=== PATIENT | male | born 1950 | race Caucasian/White ===

== ENCOUNTER 2017-09-07 15:39 | Inpatient (IN) | payer OTHER ==
[2017-09-07] VITALS (8 sets, daily range): BP systolic 101–105; BP diastolic 68–74; PULSE 84–101; TEMP 36.1; O2SAT 92–96; Ht 177.8 cm; Wt 94.7 kg
[~2017-09-07] VITALS: Ht 177.8 cm; Wt 94.7 kg
[~2017-09-07 15:39] MED LIST: AZIT-57 PO; BRVIN INH; HPRIS5M SQ; IPRA-2 INH; LANS30TA3 PO; LCTX PO; MCM600 PO; NTRSLP4 SL; NYSS5 PO; PLMINS25 INH; PRD5 PO; ULT50X PO
[2017-09-07] MEDS ORDERED: AZITHROMYCIN IV 500 MG in DEXTROSE 5% 250ML 250 ML IV ONE (16:00)
[2017-09-07] MEDS ORDERED: ALBUT/IPRATROP 3MG/0.5MG NEB 3 ML VIAL INH ONE ×2 (16:00→18:15)
[2017-09-07] MEDS ORDERED: METHYLPREDNISOLONE 125 MG VIAL IV STA (16:00)
[2017-09-07] MEDS ORDERED: MAGNESIUM SULFATE 1GM / D5W 1 GM BAG IV STA (16:00)
--- NOTE | 2017-09-07 16:10 | EMERGENCY ROOM VISIT NOTE ---
History Report prepared by Efrain: Arturo Perera Under the Supervision of: Dr. Brodie Boudreaux M.D. First contact with patient: 15:41 Stated Complaint: SYNCOPE History of Present Illness The patient is a 67 year old male who presents to the Emergency Room with complaints of worsening shortness of breath beginning a few days ago. The patient's extended family states he lives alone. They report the patient was a little off yesterday, and he was checking his O2 Sat a lot. They state the patient was able to watch the football game and stay awake. The family notes he has been a little off for the past few days and think it has been building. They state the patient was short of breath while talking to him on the phone earlier, so they went to his house. The family reports the patient was not able to be aroused. The patient states he was using his inhalers a lot yesterday. EMS states the patient lives in poor conditions, and they question if the patient needs office of aging, and there was question if the patient is non compliant with his medications. HPI limited secondary to the patient's condition. Source of History: patient, family History Limited By: other (condition) Review of Systems ROS limited secondary to the patient's condition. Past Medical & Surgical Medical Problems: (1) Acute hypercapnic respiratory failure (2) Acute respiratory failure with hypoxia and hypercapnia (3) Acute tubular necrosis (4) Hyperglycemia (5) HYPERTENSION NOS (6) Mass of left lung (7) Mass of right lung (8) Nonsustained ventricular tachycardia (9) Prolonged Q-T interval on ECG (10) Tobacco abuse (11) Tobacco user Family History Hypertension Social History Smoking Status: Current Every Day Smoker Alcohol Use: occasionally Drug Use: none Marital Status: single Housing Status: lives alone Occupation Status: retired Current/Historical Medications Scheduled Budesonide/Formoterol Fumarate (Symbicort 160/4.5 Inhaler ), 2 PUFFS INH BID Diltiazem Hcl Ext Rel (Tiazac), 180 MG PO QAM Furosemide (Lasix), 40 MG PO BID Scheduled PRN Ipratropium-Albuterol (Combivent Respimat), 1 PUFFS INH QID PRN for SOB/Wheezing Nitroglycerin (Nitrostat), 0.4 MG SL UD PRN for Chest Pain Allergies Coded Allergies: No Known Allergies (Unverified , NONE, 10/29/17) Physical Exam Vital Signs Date Time Temp Pulse Resp B/P (MAP) Pulse Ox O2 Delivery O2 Flow Rate FiO2 09/07/17 18:28 95 95 90 09/07/17 18:19 95 24 92 BiPAP/CPAP 100 09/07/17 17:16 101 14 104/74 100 BiPAP 100 09/07/17 16:26 101 20 94 BiPAP/CPAP 100 09/07/17 16:23 101 94 100 09/07/17 15:50 97 09/07/17 15:40 84 Room Air 09/07/17 15:40 84 Room Air 09/07/17 15:40 36.4 106 26 137/87 84 Room Air 09/07/17 15:40 98 Non-Rebreather Physical Exam GENERAL: alert to painful stimuli, drowsy, in mild distress HENT: Normocephalic, atraumatic. Oropharynx with Dry and cracked mucus membranes. EYES: Normal conjunctiva. Sclera non-icteric. NECK: Supple. No nuchal rigidity. FROM. No JVD. RESPIRATORY: Diminished breath sounds throughout with scattered wheezing. Poor air entry. CARDIAC: ST. Extremities warm and well perfused. Pulses equal. ABDOMEN: obese but soft, distended. No tenderness to palpation. No rebound or guarding. No masses. RECTAL: Deferred. MUSCULOSKELETAL: Chest examination reveals no tenderness. The back is symmetrical on inspection without obvious abnormality. There is no CVA tenderness to palpation. No joint edema. LOWER EXTREMITIES: Calves are equal size bilaterally and non-tender. 2+ bilateral edema. Chronic venous stasis discoloration. No erythema or warmth. No tenderness. No warmth. No crepitus. NEURO: Normal sensorium. No sensory or motor deficits noted. Intermittent myoclonus. GCS 13 SKIN: No rash or jaundice noted. Medical Decision & Procedures ER Provider Diagnostic Interpretation: X-ray: Per my interpretation, radiologist review. CHEST ONE VIEW PORTABLE CLINICAL HISTORY: CHEST PAIN dyspnea COMPARISON STUDY: 618 1016 FINDINGS: Increased diameter of a density right mid-upper lung region. This has a greatest maximum dimension currently of 3.6 cm increased from the prior study of 2.0 cm. Slight interstitial prominence of both lung bases noted although this is less prominent as compared to the prior study. IMPRESSION: Increasing size of a spiculated nodule right midlung region. 2. Neoplasm is the diagnosis of exclusion as was noted previously. 3. Slight basilar interstitial prominence. The above report was generated using voice recognition software. It may contain grammatical, syntax or spelling errors. Electronically signed by: Luís Figueroa M.D. 09/07/2017 5:11 PM Dictated Date/Time: 09/07/2017 5:10 PM Laboratory Results 09/07/17 16:20 Red Blood Count 5.42, Mean Corpuscular Volume 96.5, Mean Corpuscular Hemoglobin 29.2, Mean Corpuscular Hemoglobin Concent 30.2, Mean Platelet Volume 10.6, Neutrophils (%) (Auto) 88.7, Lymphocytes (%) (Auto) 4.8, Monocytes (%) (Auto) 5.8, Eosinophils (%) (Auto) 0.0, Basophils (%) (Auto) 0.1, Neutrophils # (Auto) 12.51, Lymphocytes # (Auto) 0.68, Monocytes # (Auto) 0.82, Eosinophils # (Auto) 0.00, Basophils # (Auto) 0.02 09/07/17 16:20 Test 09/07/17 16:17 09/07/17 16:20 09/07/17 16:28 09/07/17 18:17 Venous Blood pH 7.26 (7.36-7.41) Venous Blood Partial Pressure CO2 102 mmHg (38.0-50.0) Venous Blood Partial Pressure O2 37 mmHg Venous Blood HCO3 45 mmol/L Venous Blood Oxygen Saturation 69.5 % Venous Blood Base Excess 12.7 mEq/L White Blood Count 14.12 K/uL (4.8-10.8) Red Blood Count 5.42 M/uL (4.7-6.1) Hemoglobin 15.8 g/dL (14.0-18.0) Hematocrit 52.3 % (42-52) Mean Corpuscular Volume 96.5 fL (80-100) Mean Corpuscular Hemoglobin 29.2 pg (25-34) Mean Corpuscular Hemoglobin Concent 30.2 g/dl (32-36) Platelet Count 267 K/uL (130-400) Mean Platelet Volume 10.6 fL (7.4-10.4) Neutrophils (%) (Auto) 88.7 % Lymphocytes (%) (Auto) 4.8 % Monocytes (%) (Auto) 5.8 % Eosinophils (%) (Auto) 0.0 % Basophils (%) (Auto) 0.1 % Neutrophils # (Auto) 12.51 K/uL (1.4-6.5) Lymphocytes # (Auto) 0.68 K/uL (1.2-3.4) Monocytes # (Auto) 0.82 K/uL (0.11-0.59) Eosinophils # (Auto) 0.00 K/uL (0-0.5) Basophils # (Auto) 0.02 K/uL (0-0.2) RDW Standard Deviation 54.7 fL (36.4-46.3) RDW Coefficient of Variation 15.5 % (11.5-14.5) Immature Granulocyte % (Auto) 0.6 % Immature Granulocyte # (Auto) 0.09 K/uL (0.00-0.02) Prothrombin Time 11.0 SECONDS (9.0-12.0) Prothromb Time International Ratio 1.0 (0.9-1.1) Anion Gap 3.0 mmol/L (3-11) Est Creatinine Clear Calc Drug Dose 79.1 ml/min Estimated GFR () 85.1 Estimated GFR (Non- 73.4 BUN/Creatinine Ratio 18.4 (10-20) Calcium Level 8.7 mg/dl (8.5-10.1) Magnesium Level 2.5 mg/dl (1.8-2.4) Total Bilirubin 0.4 mg/dl (0.2-1) Direct Bilirubin 0.2 mg/dl (0-0.2) Aspartate Amino Transf (AST/SGOT) 36 U/L (15-37) Alanine Aminotransferase (ALT/SGPT) 32 U/L (12-78) Alkaline Phosphatase 121 U/L (45-117) Pro-B-Type Natriuretic Peptide 118 pg/ml (0-900) Total Protein 7.6 gm/dl (6.4-8.2) Albumin 3.0 gm/dl (3.4-5.0) Lipase 64 U/L (73-393) Lactic Acid Level 1.0 mmol/L (0.4-2.0) Bedside Hemoglobin 17.3 g/dl (14.0-18.0) Bedside Hematocrit 51 % (42-52) Bedside Blood Gas pH (LAB) 7.22 (7.35-7.45) Bedside Blood Gas pCO2 (LAB) > 115 mmHg (35-46) Bedside Blood Gas pO2 (LAB) 107 mmHg (80-95) Bedside Blood Gas HCO3 (LAB) 48 meq/L (19-24) Bedside Blood Gas Total CO2 < 5 mEq/l (24-31) Bedside Blood Gas Base Excess (LAB) 20.0 meq/L (-9-1.8) Bedside Blood Gas O2 Saturation 96.0 % (90-95) Bedside Sodium 137 mEq/L (135-144) Bedside Potassium 3.9 mEq/L (3.3-5.0) Laboratory results reviewed by me Medications Administered Medications (Trade) Dose Ordered Sig/Andrés Route Start Time Stop Time Status Last Admin Dose Admin Azithromycin 500 mg/Dextrose 255 ml @ 125 mls/hr ONE ONCE IV 09/07/17 16:00 09/07/17 18:02 DC 09/07/17 16:40 125 MLS/HR Methylprednisolone Sodium Succinate (Solu-Medrol IV) 125 mg NOW STAT IV 09/07/17 16:00 09/07/17 16:05 DC 09/07/17 16:40 125 MG Magnesium Sulfate (Magnesium Sulfate) 2 gm NOW STAT IV 09/07/17 16:00 09/07/17 16:05 DC 09/07/17 16:43 2 GM Albuterol/ Ipratropium (Duoneb) 12 ml ONE ONCE INH 09/07/17 16:00 09/07/17 16:05 DC 09/07/17 16:22 12 ML Piperacillin Sod/ Tazobactam Sod (Zosyn Iv) 4.5 gm NOW STAT IV 09/07/17 17:28 09/07/17 17:31 DC 09/07/17 18:37 4.5 GM Vancomycin HCl 2250 mg/Sodium Chloride 545 ml @ 200 mls/hr ONE STAT IV 09/07/17 17:28 09/07/17 20:11 DC 09/07/17 19:51 200 MLS/HR Sodium Chloride 1,000 ml @ 999 mls/hr Q1H1M STAT IV 09/07/17 17:30 09/07/17 18:30 DC 09/07/17 17:47 999 MLS/HR Albuterol/ Ipratropium (Duoneb) 12 ml ONE ONCE INH 09/07/17 18:15 09/07/17 18:16 DC 09/07/17 18:10 12 ML ECG Indication: SOB/dyspnea Rate (beats per minute): 97 Rhythm: sinus rhythm Findings: PVC (occasional), no acute ischemic change, other (normal axis) ED Course 1552: The patient was evaluated in room C06. A complete history and physical exam was performed. 1600: Ordered Duoneb 12ml INH, Magnesium Sulfate 2gm IV, Solu-Medrol IV 125mg IV , Azithromycin 500 mg/Dextrose 255ml @ 125mls/hr IV 1634: I reevaluated the patient and updated him and his family of his current exam findings. 1728: Ordered Vancomycin HCl 2250mg/Sodium Chloride 545ml @ 200mls/hr IV, Piperacillin Sod/Tazobactam Sod 4.5gm IV 1730: Ordered Sodium Chloride 1000 ml @ 999 mls/hr IV 1743: I discussed the patient's case with Dr. Crump, [facility] Hospitalist. The patient will be evaluated for further management and care. 175: Upon reexamination, the patient was feeling better and more arousable. I discussed the test results and treatment plan with him and his family. The patient will be evaluated for further management. 1815: Ordered Duoneb 12ml INH Medical Decision I reviewed the patient's past medical history, medications, and the nursing notes as described above. Differential diagnoses: COPD exacerbation/hypercapnic respiratory failure, pneumonia, bronchitis, ACS, CHF, PE, sepsis. The patient is a 59-year-old gentleman with a past medical history of COPD on 2 L home O2 with history of respiratory failure requiring intubation presents to the emergency department with drowsiness, shortness of breath after being found by a family member this afternoon when he was not making sense over the phone per history of present illness. Per family the patient reports that they were watching football last night and he seemed a little fatigued but otherwise at his baseline. On arrival the patient is arousable to painful stimulus and mildly confused with intermittent mild myoclonus. Lungs diminished throughout with scattered wheezes. Suspicious for severe hypercarbia. Will place on BiPAP with continuous nebs steroids, Azithromycin, magnesium. Sepsis workup. Labs notable for hypercapnia with CO2 100s on VBG. pH 7.25. WBC 14. Chest x- ray with basilar opacities and otherwise interval enlargement of a known spiculated mass. She was given broad-spectrum antibiotics. Likely will require ICU admission given h/o of worsening symptoms requiring intubation. ABG done 2 hours after Bipap with CO2 to 110s and pH 7.21. While gas slightly worse patent clinically improved as arousable to light touch and with some increase air movement. Repeat continuous duoneb ordered. Case was discussed with Dr. Crump [facility] hospitalist, who will admit for further management. Head Trauma GCS Score: 13 Medication Reconcilliation Current Medication List: was personally reviewed by me Blood Pressure Screening Patient's blood pressure: Normal blood pressure Blood pressure disposition: Did not require urgent referral Consults Time Called: 1724 Consulting Physician: Dr. Crump [facility] Hospitalist Returned Call: 1743 I discussed the patient's case with Dr. Crump [facility] Hospitalist. The patient will be evaluated for further management and care. Impression Primary Impression: Acute hypercapnic respiratory failure Critical Care I have personally spent greater than 80 minutes of critical care time in the direct management of this patient. This includes bedside care, interpretation of diagnostic studies, and testing, discussion with consultants, patient, and family members, and other required patient management activities. This 80 minutes is in excess of all separately billable procedures. Scribe Attestation The scribe's documentation has been prepared under my direction and personally reviewed by me in its entirety. I confirm that the note above accurately reflects all work, treatment, procedures, and medical decision making performed by me. Departure Information Dispostion Being Evaluated By Hospitalist Referrals No Doctor, Assigned (PCP)
[2017-09-07] MEDS ORDERED: IPRA1AER2 INH (16:20)
[2017-09-07] MEDS ORDERED: DILT-113 PO (16:20)
[2017-09-07] MEDS ORDERED: SYMIN160 INH (16:20)
[2017-09-07] MEDS ORDERED: FRS/40 PO (16:20)
[2017-09-07 16:26] LABS: VEN BLD GAS O2 SATURATION 69.5 %; VEN BLOOD GAS BASE EXCESS 12.7 mEq/L
[2017-09-07 16:40] LABS: BASO % 0.1 %; BASO ABS # 0.02 K/uL (0-0.2); COMPLETE YES; HEMATOCRIT 52.3 % (42-52); IG% 0.6 %; LYMPH % 4.8 %; LYMPH ABS # 0.68 K/uL (1.2-3.4); MEAN CELL VOLUME 96.5 fL (80-100); MEAN CORPUSCULAR HEMOGLOBIN 29.2 pg (25-34); MEAN CORPUSCULAR HGB CONC 30.2 g/dl (32-36); MEAN PLATELET VOLUME 10.6 fL (7.4-10.4); MONO % 5.8 %; NEUT % 88.7 %; PLATELET COUNT 267 K/uL (130-400); RED BLOOD COUNT 5.42 M/uL (4.7-6.1); WHITE BLOOD COUNT 14.12 K/uL (4.8-10.8)
[2017-09-07 17:05] LABS: BUN/CREATININE RATIO 18.4 (10-20); CALCIUM 8.7 mg/dl (8.5-10.1); CREATININE 1.04 mg/dl (0.60-1.40); POTASSIUM 3.8 mmol/L (3.5-5.1)
--- NOTE | 2017-09-07 17:13 | DIAGNOSTIC IMAGING REPORT ---
CHEST ONE VIEW PORTABLE CLINICAL HISTORY: CHEST PAIN dyspnea COMPARISON STUDY: 618 1016 FINDINGS: Increased diameter of a density right mid-upper lung region. This has a greatest maximum dimension currently of 3.6 cm increased from the prior study of 2.0 cm. Slight interstitial prominence of both lung bases noted although this is less prominent as compared to the prior study. IMPRESSION: Increasing size of a spiculated nodule right midlung region. 2. Neoplasm is the diagnosis of exclusion as was noted previously. 3. Slight basilar interstitial prominence. The above report was generated using voice recognition software. It may contain grammatical, syntax or spelling errors. Electronically signed by: Luís Figueroa M.D. 09/07/2017 5:11 PM Dictated Date/Time: 09/07/2017 5:10 PM
[2017-09-07] MEDS ORDERED: PIPERACILLIN/TAZOBACTAM 4.5 GM/100ML D5W IV STA (17:28)
[2017-09-07] MEDS ORDERED: VANCOMYCIN INJ 2,250 MG in SODIUM CHLORIDE 0.9% 500ML 500 ML IV STA (17:28)
[2017-09-07] MEDS ORDERED: SODIUM CHLORIDE 0.9% 1000ML 1,000 ML IV STA (17:30)
[2017-09-07 18:38] LABS: ISTAT ARTERIAL BLOOD GAS HCO3 48 meq/L (19-24); ISTAT ARTERIAL BLOOD GAS PCO2 > 115 mmHg (35-46); ISTAT ARTERIAL BLOOD GAS PO2 107 mmHg (80-95); ISTAT ARTERIAL BLOOD GAS pH 7.22 (7.35-7.45); ISTAT CARBON DIOXIDE < 5 mEq/l (24-31); ISTAT HEMATOCRIT 51 % (42-52); ISTAT HEMOGLOBIN 17.3 g/dl (14.0-18.0); ISTAT SODIUM 137 mEq/L (135-144)
[2017-09-07] MEDS ORDERED: OPTIRAY 320 IV PRN (19:15)
[2017-09-07] MEDS ORDERED: ACETAMINOPHEN 325 MG TAB PO PRN (19:15)
[2017-09-07] MEDS ORDERED: FUROSEMIDE 40 MG TAB PO SCH (20:00)
--- NOTE | 2017-09-07 20:16 | DIAGNOSTIC IMAGING REPORT ---
(CHEST FOR PE) ANGIO WITH CT DOSE: 715.06 mGy.cm HISTORY: Chest pain dyspnea TECHNIQUE: Multiaxial CT images of the chest were performed following the intravenous administration of contrast to evaluate the pulmonary arteries. Maximal intensity projection images were also obtained. A dose lowering technique was utilized adhering to the principles of ALARA. COMPARISON STUDY: 04/19/2016 FINDINGS: Thoracic aorta shows moderate atherosclerotic change. It is negative for aneurysm. Pulmonary arterial vasculature enhances appropriately. There are no major filling defects. Heart is mildly enlarged. The right upper lobe mass again shows a spiculated margin and has increased in volume. Currently measures 3.3 x 3.7 cm and is pleural-based. Neoplasm is the diagnosis of exclusion. Remainder the right lung shows mild bibasilar interstitial change. There is a small consolidative infiltrate posterior aspect of the right as well as left posterior gastric angle. Bibasilar atelectatic changes present. There is a new developing nodule lateral aspect left lung base measuring 11 mm at maximum. Limited evaluation of the upper abdomen shows mild hyperplastic changes the adrenal glands. IMPRESSION: 1. Study is negative for pulmonary embolus. 2. Increase in size of a right upper lobe spiculated mass currently measuring 3.3 x 3.7 cm. 3. A neoplastic processes diagnosis of exclusion. 4. Additional 11 mm spiculated nodular density left base. 5. Mild bibasilar parenchymal infiltrative change with mild generalized emphysematous change bilaterally. The above report was generated using voice recognition software. It may contain grammatical, syntax or spelling errors. Electronically signed by: Luís Figueroa M.D. 09/07/2017 8:15 PM Dictated Date/Time: 09/07/2017 8:11 PM
[2017-09-07] MEDS ORDERED: VANCOMYCIN CONSULT ACTIVE PRN (20:30)
[2017-09-07] MEDS ORDERED: PIPERACILL/TAZOBAC CONSULT ACTIVE PRN (20:30)
--- NOTE | 2017-09-07 20:34 | Pharmacy Progress Note ---
Pharmacy Antibiotic Consult Date of Service: Sep 07, 2017. Pharmacy Dosing Scope Pharmacy is consulted to initiate vancomycin and Zosyn IV dosing therapy, order appropriate labs and adjust drug dose/frequency. Subjective The patient is a 67 year old male admitted on Sep 07, 2017 at 19:12. Objective Height (Feet): 5 Height (Inches): 10.00 Weight (Kilograms): 96.100 Lab Results (24hrs): Test 09/07/17 16:17 09/07/17 16:20 09/07/17 16:28 09/07/17 18:17 Venous Blood pH 7.26 (7.36-7.41) Venous Blood Partial Pressure CO2 102 mmHg (38.0-50.0) Venous Blood Partial Pressure O2 37 mmHg Venous Blood HCO3 45 mmol/L Venous Blood Oxygen Saturation 69.5 % Venous Blood Base Excess 12.7 mEq/L White Blood Count 14.12 K/uL (4.8-10.8) Red Blood Count 5.42 M/uL (4.7-6.1) Hemoglobin 15.8 g/dL (14.0-18.0) Hematocrit 52.3 % (42-52) Mean Corpuscular Volume 96.5 fL (80-100) Mean Corpuscular Hemoglobin 29.2 pg (25-34) Mean Corpuscular Hemoglobin Concent 30.2 g/dl (32-36) Platelet Count 267 K/uL (130-400) Mean Platelet Volume 10.6 fL (7.4-10.4) Neutrophils (%) (Auto) 88.7 % Lymphocytes (%) (Auto) 4.8 % Monocytes (%) (Auto) 5.8 % Eosinophils (%) (Auto) 0.0 % Basophils (%) (Auto) 0.1 % Neutrophils # (Auto) 12.51 K/uL (1.4-6.5) Lymphocytes # (Auto) 0.68 K/uL (1.2-3.4) Monocytes # (Auto) 0.82 K/uL (0.11-0.59) Eosinophils # (Auto) 0.00 K/uL (0-0.5) Basophils # (Auto) 0.02 K/uL (0-0.2) RDW Standard Deviation 54.7 fL (36.4-46.3) RDW Coefficient of Variation 15.5 % (11.5-14.5) Immature Granulocyte % (Auto) 0.6 % Immature Granulocyte # (Auto) 0.09 K/uL (0.00-0.02) Prothrombin Time 11.0 SECONDS (9.0-12.0) Prothromb Time International Ratio 1.0 (0.9-1.1) Sodium Level 136 mmol/L (136-145) Potassium Level 3.8 mmol/L (3.5-5.1) Chloride Level 94 mmol/L (98-107) Carbon Dioxide Level 39 mmol/L (21-32) Anion Gap 3.0 mmol/L (3-11) Blood Urea Nitrogen 19 mg/dl (7-18) Creatinine 1.04 mg/dl (0.60-1.40) Est Creatinine Clear Calc Drug Dose 79.1 ml/min Estimated GFR () 85.1 Estimated GFR (Non- 73.4 BUN/Creatinine Ratio 18.4 (10-20) Random Glucose 141 mg/dl (70-99) Calcium Level 8.7 mg/dl (8.5-10.1) Magnesium Level 2.5 mg/dl (1.8-2.4) Total Bilirubin 0.4 mg/dl (0.2-1) Direct Bilirubin 0.2 mg/dl (0-0.2) Aspartate Amino Transf (AST/SGOT) 36 U/L (15-37) Alanine Aminotransferase (ALT/SGPT) 32 U/L (12-78) Alkaline Phosphatase 121 U/L (45-117) Troponin I 0.030 ng/ml (0-0.045) Pro-B-Type Natriuretic Peptide 118 pg/ml (0-900) Total Protein 7.6 gm/dl (6.4-8.2) Albumin 3.0 gm/dl (3.4-5.0) Lipase 64 U/L (73-393) Lactic Acid Level 1.0 mmol/L (0.4-2.0) Bedside Hemoglobin 17.3 g/dl (14.0-18.0) Bedside Hematocrit 51 % (42-52) Bedside Blood Gas pH (LAB) 7.22 (7.35-7.45) Bedside Blood Gas pCO2 (LAB) > 115 mmHg (35-46) Bedside Blood Gas pO2 (LAB) 107 mmHg (80-95) Bedside Blood Gas HCO3 (LAB) 48 meq/L (19-24) Bedside Blood Gas Total CO2 < 5 mEq/l (24-31) Bedside Blood Gas Base Excess (LAB) 20.0 meq/L (-9-1.8) Bedside Blood Gas O2 Saturation 96.0 % (90-95) Bedside Sodium 137 mEq/L (135-144) Bedside Potassium 3.9 mEq/L (3.3-5.0) Test 09/07/17 20:00 Micro Results: 09/07 blood x2 pending Recent Pertinent Medications Item Value Date Time Vancomycin HCl 530 ml @ 200 mls/hr 09/08/17 0800 1500 mg/Sodium Q12H/IV Chloride Piperacillin Sod/ 115 ml @ 28.75 mls/hr 09/08/17 0000 Tazobactam Sod Q8@0000,0800,1600/IV 3.375 gm/Dextrose Piperacillin Sod/ 4.5 gm 09/07/17 1728 Tazobactam Sod NOW STAT/IV 09/07/17 1837 (Zosyn Iv) Vancomycin HCl 545 ml @ 200 mls/hr 09/07/17 1728 2250 mg/Sodium ONE STAT/IV 09/07/17 1951 Chloride Azithromycin 500 255 ml @ 125 mls/hr 09/07/17 1600 mg/Dextrose ONE ONCE/IV 09/07/17 1640 Assessment & Plan Loading dose: vancomycin 2250 mg IV X 1 dose then: vancomycin 1500 mg IV every 12 hours. Goal peak level estimate: between 25 - 40 mcg/mL. Goal trough level estimate: between 15 - 20 mcg/mL. Trough has been ordered for: 09/09 17 before 0800 dose. Loading dose Zosyn 4.5 Gm IV over 30 minutes, then 3.375 Gm (infused over 4 hr) every 8 hours, for CrCl greater than 20 ml/min. Pharmacy will continue to follow and will adjust dose/frequency as necessary. Thank you
[2017-09-07 20:53] LABS: ARTERIAL BLD GAS O2 SATURATION 95.6 % (90-95); ARTERIAL BLOOD GAS HCO3 41 mmol/L (19-24); ARTERIAL BLOOD GAS PO2 95 mm/Hg (80-95)
[2017-09-07] MEDS: ALBUT/IPRATROP 3MG/0.5MG NEB 3 ML VIAL INH SCH (20:53)
[2017-09-07 20:57] LABS: ALLEN TEST POS (POS); O2 ADMINISTRATION 15 L
[2017-09-07 20:58] LABS: ARTERIAL BLOOD GAS pH 7.19 (7.35-7.45)
[2017-09-07] MEDS ORDERED: BUDESONIDE/FORMOTEROL FUMARATE 160/4.5 60 PUFFS/INHALER INH SCH (21:00)
--- NOTE | 2017-09-07 21:28 | History and Physical ---
History & Physical Date & Time of Service: Sep 07, 2017 at 20:53 Chief Complaint: Acute Hypercapnic Respiratory Failure Primary Care Physician: Dr. Son[facility] History of Present Illness Source: patient, family, clinic records, hospital records This patient is a 67-year-old male with history of severe COPD with chronic respiratory failure on 2 L nasal cannula, history of ventilator dependent respiratory failure requiring tracheostomy in April 2016, current smoker, HTN, chronic diastolic CHF, history of paroxysmal atrial flutter, lung nodule, CKD stage III, who presents to the ER after being found unresponsive by a friend at home today. His sister at the bedside reports she spoke to him on the phone yesterday and he sounded perfectly normal. When a friend came to check on him this afternoon, she found him unresponsive. He was in severe acute hypercapnic respiratory failure with an initial VBG a pH 7.26, CO2 102. He was placed on BiPAP and an ABG performed 2 hours later still showed pH 7.22, PaCO2 >115, and PaO2 of 107, although the patient at this time was much more alert and talkative. His chest x-ray revealed evidence of emphysema and increase in size of a right sided lung nodule, but no pneumonia. He had a leukocytosis with a white blood cell count of 14, but no fever. The patient reports an increase in his thick patel-yellow sputum over the last week or so. The patient sees his PCP at the [facility] about once every 6 months, but has not seen his [facility] PCP in 16 months. He purposefully did not follow-up on his right lung nodule as he tells me he would rather not know what it is. Past Medical/Surgical History PMH: Severe COPD Chronic respiratory failure History of ventilator dependent respiratory failure requiring tracheostomy in April 2016 Current smoker HTN Chronic diastolic CHF History of paroxysmal atrial flutter requiring cardioversion Right-sided lung nodule-patient never followed up on this CKD stage III PTSD PSH: Tracheotomy Tonsillectomy Family History Hypertension Mother and maternal aunt both from sarcoidosis Father and mother with diabetes mellitus and COPD Sr. with history of DVT/PE Paternal grandmother of PE Brother who is previously healthy suddenly recently, suspected PE versus MT Social History Smoking Status: Current Every Day Smoker (38-[id number] history minimum) Alcohol Use: occasionally Drug Use: none Marital Status: single Housing status: lives alone Occupational Status: retired, other (is also a ) Immunizations History of Influenza Vaccine: No Influenza Vaccine Date: Aug 23, 2012 History of Tetanus Vaccine?: Yes Tetanus Immunization Date: Jan 16, 2012 History of Pneumococcal: Yes Pneumococcal Date: Aug 23, 2012 History of Hepatitis B Vaccine: No Allergies Coded Allergies: No Known Allergies (Unverified , NONE, 09/07/17) Home Medications Scheduled Budesonide/Formoterol Fumarate (Symbicort 160/4.5 Inhaler ), 2 PUFFS INH BID Diltiazem Hcl Ext Rel (Tiazac), 180 MG PO QAM Furosemide (Lasix), 40 MG PO BID Scheduled PRN Ipratropium-Albuterol (Combivent Respimat), 1 PUFFS INH QID PRN for SOB/Wheezing Nitroglycerin (Nitrostat), 0.4 MG SL UD PRN for Chest Pain Review of Systems Constitutional: No fever, No chills, No sweats Eyes: No problem reported ENT: No problem reported Respiratory: + cough, + sputum, + wheezing, + shortness of breath, No hemoptysis Cardiovascular: + edema (chronic but seems to be slightly worse more recently) , No chest pain Abdomen: No pain, No nausea, No vomiting, No diarrhea, No constipation Musculoskeletal: No problem reported Genitourinary - Male: No problem reported Neurologic: No problem reported Psychiatric: + anxiety Endocrine: No problem reported Hematologic / Lymphatic: No problem reported Integumentary: No problem reported Allergic / Immunologic: No problem reported Physical Exam Vital Signs Date Time Temp Pulse Resp B/P (MAP) Pulse Ox O2 Delivery O2 Flow Rate FiO2 09/07/17 19:49 85 18 95/74 95 09/07/17 18:28 95 95 90 09/07/17 18:19 95 24 92 BiPAP/CPAP 100 09/07/17 17:16 101 14 104/74 100 BiPAP 100 09/07/17 16:26 101 20 94 BiPAP/CPAP 100 09/07/17 16:23 101 94 100 09/07/17 15:50 97 09/07/17 15:40 84 Room Air 09/07/17 15:40 84 Room Air 09/07/17 15:40 36.4 106 26 137/87 84 Room Air 09/07/17 15:40 98 Non-Rebreather General Appearance: + mild distress (sitting up in bed with BiPAP in place), + obese Head: normocephalic, atraumatic Eyes: normal inspection, PERRL, EOMI, sclerae normal ENT: hearing grossly normal Neck: trachea midline, + pertinent finding (obese neck) Respiratory/Chest: no accessory muscle use, + respiratory distress (mild tachypnea), + decreased breath sounds (diminished throughout all lung campos, with some scattered rhonchi and expiratory wheezes) Cardiovascular: no murmur, + tachycardia (with regular rhythm with ectopy), + pertinent finding (3+ pitting edema from the feet to the knees bilaterally with chronic venous stasis changes) Abdomen/GI: normal bowel sounds, non tender, soft (and obese), no organomegaly Back: normal inspection Extremities/Musculoskelatal: no calf tenderness Neurologic/Psych: no motor/sensory deficits, alert, normal mood/affect, oriented x 3 Skin: warm/dry, + pertinent finding (legs bilaterally with hemosiderin deposits of chronic venous stasis changes) Diagnostics Laboratory Results Results Past 24 Hours Test 09/07/17 16:17 09/07/17 16:20 09/07/17 16:28 09/07/17 18:17 Range/Units Venous Blood pH 7.26 7.36-7.41 Venous Blood Partial Pressure CO2 102 38.0-50.0 mmHg Venous Blood Partial Pressure O2 37 mmHg Venous Blood HCO3 45 mmol/L Venous Blood Oxygen Saturation 69.5 % Venous Blood Base Excess 12.7 mEq/L White Blood Count 14.12 4.8-10.8 K/uL Red Blood Count 5.42 4.7-6.1 M/uL Hemoglobin 15.8 14.0-18.0 g/dL Hematocrit 52.3 42-52 % Mean Corpuscular Volume 96.5 80-100 fL Mean Corpuscular Hemoglobin 29.2 25-34 pg Mean Corpuscular Hemoglobin Concent 30.2 32-36 g/dl Platelet Count 267 130-400 K/uL Mean Platelet Volume 10.6 7.4-10.4 fL Neutrophils (%) (Auto) 88.7 % Lymphocytes (%) (Auto) 4.8 % Monocytes (%) (Auto) 5.8 % Eosinophils (%) (Auto) 0.0 % Basophils (%) (Auto) 0.1 % Neutrophils # (Auto) 12.51 1.4-6.5 K/uL Lymphocytes # (Auto) 0.68 1.2-3.4 K/uL Monocytes # (Auto) 0.82 0.11-0.59 K/uL Eosinophils # (Auto) 0.00 0-0.5 K/uL Basophils # (Auto) 0.02 0-0.2 K/uL RDW Standard Deviation 54.7 36.4-46.3 fL RDW Coefficient of Variation 15.5 11.5-14.5 % Immature Granulocyte % (Auto) 0.6 % Immature Granulocyte # (Auto) 0.09 0.00-0.02 K/uL Prothrombin Time 11.0 9.0-12.0 SECONDS Prothromb Time International Ratio 1.0 0.9-1.1 Sodium Level 136 136-145 mmol/L Potassium Level 3.8 3.5-5.1 mmol/L Chloride Level 94 98-107 mmol/L Carbon Dioxide Level 39 21-32 mmol/L Anion Gap 3.0 3-11 mmol/L Blood Urea Nitrogen 19 7-18 mg/dl Creatinine 1.04 0.60-1.40 mg/dl Est Creatinine Clear Calc Drug Dose 79.1 ml/min Estimated GFR () 85.1 Estimated GFR (Non- 73.4 BUN/Creatinine Ratio 18.4 10-20 Random Glucose 141 70-99 mg/dl Calcium Level 8.7 8.5-10.1 mg/dl Magnesium Level 2.5 1.8-2.4 mg/dl Total Bilirubin 0.4 0.2-1 mg/dl Direct Bilirubin 0.2 0-0.2 mg/dl Aspartate Amino Transf (AST/SGOT) 36 15-37 U/L Alanine Aminotransferase (ALT/SGPT) 32 12-78 U/L Alkaline Phosphatase 121 45-117 U/L Troponin I 0.030 0-0.045 ng/ml Pro-B-Type Natriuretic Peptide 118 0-900 pg/ml Total Protein 7.6 6.4-8.2 gm/dl Albumin 3.0 3.4-5.0 gm/dl Lipase 64 73-393 U/L Lactic Acid Level 1.0 0.4-2.0 mmol/L Bedside Hemoglobin 17.3 14.0-18.0 g/dl Bedside Hematocrit 51 42-52 % Bedside Blood Gas pH (LAB) 7.22 7.35-7.45 Bedside Blood Gas pCO2 (LAB) > 115 35-46 mmHg Bedside Blood Gas pO2 (LAB) 107 80-95 mmHg Bedside Blood Gas HCO3 (LAB) 48 19-24 meq/L Bedside Blood Gas Total CO2 < 5 24-31 mEq/l Bedside Blood Gas Base Excess (LAB) 20.0 -9-1.8 meq/L Bedside Blood Gas O2 Saturation 96.0 90-95 % Bedside Sodium 137 135-144 mEq/L Bedside Potassium 3.9 3.3-5.0 mEq/L Test 09/07/17 20:43 Range/Units Microbiology Results 09/07/17 Blood Culture, Received Pending 09/07/17 Blood Culture, Received Pending Diagnostic Radiology Chest x-ray and chest CT images personally reviewed by me and agree with following radiology reports: CHEST ONE VIEW PORTABLE CLINICAL HISTORY: CHEST PAIN dyspnea COMPARISON STUDY: [id number] FINDINGS: Increased diameter of a density right mid-upper lung region. This has a greatest maximum dimension currently of 3.6 cm increased from the prior study of 2.0 cm. Slight interstitial prominence of both lung bases noted although this is less prominent as compared to the prior study. IMPRESSION: Increasing size of a spiculated nodule right midlung region. 2. Neoplasm is the diagnosis of exclusion as was noted previously. 3. Slight basilar interstitial prominence. (CHEST FOR PE) ANGIO WITH CT DOSE: 715.06 mGy.cm HISTORY: Chest pain dyspnea TECHNIQUE: Multiaxial CT images of the chest were performed following the intravenous administration of contrast to evaluate the pulmonary arteries. Maximal intensity projection images were also obtained. A dose lowering technique was utilized adhering to the principles of ALARA. COMPARISON STUDY: 04/19/2016 FINDINGS: Thoracic aorta shows moderate atherosclerotic change. It is negative for aneurysm. Pulmonary arterial vasculature enhances appropriately. There are no major filling defects. Heart is mildly enlarged. The right upper lobe mass again shows a spiculated margin and has increased in volume. Currently measures 3.3 x 3.7 cm and is pleural-based. Neoplasm is the diagnosis of exclusion. Remainder the right lung shows mild bibasilar interstitial change. There is a small consolidative infiltrate posterior aspect of the right as well as left posterior gastric angle. Bibasilar atelectatic changes present. There is a new developing nodule lateral aspect left lung base measuring 11 mm at maximum. Limited evaluation of the upper abdomen shows mild hyperplastic changes the adrenal glands. IMPRESSION: 1. Study is negative for pulmonary embolus. 2. Increase in size of a right upper lobe spiculated mass currently measuring 3.3 x 3.7 cm. 3. A neoplastic processes diagnosis of exclusion. 4. Additional 11 mm spiculated nodular density left base. 5. Mild bibasilar parenchymal infiltrative change with mild generalized emphysematous change bilaterally. EKG EKG with normal sinus rhythm with PVCs, prolonged QT of 505, no ischemic changes Impression Assessment and Plan This patient is a 67-year-old male with history of severe COPD with chronic respiratory failure on 2 L nasal cannula, history of ventilator dependent respiratory failure requiring tracheostomy in April 2016, current smoker, HTN, chronic diastolic CHF, history of paroxysmal atrial flutter, lung nodule, CKD stage III, who presents to the ER after being found unresponsive by a friend at home today. His sister at the bedside reports she spoke to him on the phone yesterday and he sounded perfectly normal. When a friend came to check on him this afternoon, she found him unresponsive. He was in severe acute hypercapnic respiratory failure with an initial VBG a pH 7.26, CO2 102. He was placed on BiPAP and an ABG performed 2 hours later still showed pH 7.22, PaCO2 >115, and PaO2 of 107, although the patient at the time of admission was much more alert and talkative. His chest x-ray revealed evidence of emphysema and increase in size of a right sided lung nodule, but no pneumonia. He had a leukocytosis with a white blood cell count of 14, but no fever. The patient reports an increase in his thick patel-yellow sputum over the last week or so. Acute on chronic hypercapnic and hypoxemic respiratory failure/bilateral pneumonia/acute exacerbation COPD/pulmonary nodules/current smoker-patient with evidence of chronic CO2 retention with a bicarbonate of 39. ABG with PaCO2 greater than 115. Pulse ox was 84% on admission. CT angiogram of the chest negative for PE, but shows bilateral lower lobe infiltrate an enlarging 3.3 x 3.7 cm right upper lobe pleural-based nodule as well as a new 11 mm left lower lobe nodule. Nodules could be malignancy versus sarcoidosis given strong family history, but also a current smoker. Has a history of ventilator dependent respiratory failure requiring tracheotomy in April 2017 and prolonged ICU and LTAC stay -Admit to telemetry unit for continuous cardiac monitoring -Continue BiPAP, follow ABG again in 2 hours -IV steroids and taper down -Azithromycin was given in the ER 1, but with prolonged QT, would avoid this in the future -Continue Zosyn and vancomycin as started in the ER for pneumonia and severe respiratory failure-could narrow down once his status improves -Consider intubation and transfer to the ICU if respiratory status worsens- patient reports he would be okay with elective intubation -Strongly encouraged smoking cessation -Consider pulmonary versus thoracic surgery consultation for biopsy of lung nodules-patient currently stating he doesn't think he wants to know if it is cancer or not Hypertension/history of paroxysmal atrial flutter/chronic diastolic CHF/ prolonged QTC-with chronic peripheral edema but I don't believe he is in acute CHF. In a normal sinus rhythm on admission. Blood pressure actually low normal -Continue Lasix 40 mg by mouth twice a day -Strict I's and O's, daily weights -Continue diltiazem and hold for low blood pressure -Trend troponin -Follow QT on ECG Chronic kidney disease stage III-creatinine acceptable currently at 1.0, electrolytes within normal limits -Follow PRP -Renally dose all medications -Avoid nephrotoxins Prophylaxis-heparin subcutaneous Disposition-telemetry unit DO NOT RESUSCITATE, but patient would like elective intubation if respiratory status is worsening Level of Care Telemetry Resuscitation Status DO NOT RESUSCITATE VTE Prophylaxis VTE Risk Assessment Done? Y/N: Yes Risk Level: Moderate Given or contraindicated: Unfractionated heparin SQ Additional Copies To Nicolas Son M.D.
[2017-09-07] MEDS ORDERED: HEPARIN SOD 5000 UNIT/0.5 ML CARP SQ SCH (22:00)
[2017-09-07] MEDS: METHYLPREDNISOLONE IV 60 MG in SYRINGE 0 ML IV SCH (22:37)
[2017-09-07] MEDS ORDERED: RAPID SEQUENCE INDUCTION BAG ONE (22:42)
[2017-09-07] MEDS ORDERED: MoRPHine SULFATE 2 MG/ML CARP IV PRN (22:45)
[2017-09-07] MEDS ORDERED: LORAZEPAM 2 MG/ML 1 ML VIAL IV PRN (22:45)
--- NOTE | 2017-09-07 22:55 | Progress Note ---
Progress Note Date of Service Sep 07, 2017. Progress Note Pt had been deteriorating due to hypoxia and hypercarbia - not responding to BiPAP with high-flow 02 I discussed the case with family and ICU PA reg possibility of intubation Family are aware that the pt may not come off of vent - he did however express wish to be intubated if needed, although he also added that this should be done to aid his recovery. It is not clear the he will benefit from intubation and again we have discussed this with family After careful deliberation, they would like to proceed with intubation and ICU transfer [employer] aware and will intubate and set vent to optimize management The pt is not responsive at time of transfer and could not participate i the conversation He remains a DNR
[2017-09-07] MEDS ORDERED: MoRPHine SULF/NSS 250MG/250ML 250 ML IV PRN (23:37)
[2017-09-07] MEDS ORDERED: MoRPHine SULFATE 2 MG/ML CARP IV STA (23:37)
[2017-09-08] MEDS ORDERED: PIPERACILL/TAZOBAC IV 3.375 GM in DEXTROSE 5% 100ML 100 ML IV SCH ×2
[2017-09-08 00:01] VITALS: BP 112/80; PULSE 78; O2SAT 96
--- NOTE | 2017-09-08 00:52 | Critical Care Consultation ---
Critical Care Consultation Date of Consultation: Sep 07, 2017. Attending Physician: Karla Crump MD Reason for Consultation: Hypercarbic respiratory failure History of Present Illness Patient is a 67-year-old male with end-stage COPD who continues to smoke, has a family history of sarcoidosis and has a known lung mass. Most recently in April 2016 he had a COPD exacerbation required intubation and mechanical ventilation ultimately required tracheostomy for long-term ventilator weaning. In review of the outpatient record as well as the inpatient record the patient was recommended to follow up with both pulmonary and thoracic surgery for possible navigational bronchoscopy to further elucidate the cause of the lung mass. He has not been seen in [facility] since his discharge in April 2016. Patient presented to [facility] [address] emergency department today with a chief complaint of shortness of breath and been progressive over the last couple of days. The family routinely checks on them and reported that he seemed a little off mentally yesterday. When they went to the patient's residence today he was not able to be aroused and called EMS. Patient's sister's report that he lives alone, continues to smoke. Per ED records EMS was concerned the patient's living conditions and questioned if the patient needs referral to the office of aging, there is note that the patient has a history of noncompliance In the emergency department the patient was started on IV antibiotics, bronchodilators, noninvasive ventilation. They discussed CODE STATUS and the patient did not want to be resuscitated in event of cardiac arrest, patient would be willing to undergo a trial of intubation if it was felt that he would improve his condition. It was noted that the patient was clinically more alert however the blood gas had minimal change. The patient's CO2 continued to climb and the patient became more encephalopathic. Currently he is unresponsive to deep painful stimuli. Past Medical/Surgical History Acute hypercapnic respiratory failure History of acute tubular necrosis History of urinary tract infection Bilateral lung masses Severe end-stage COPD oxygen dependent Family History Hypertension Social History Smoking Status: Current Every Day Smoker ([id number] history minimum) Alcohol Use: occasionally Drug Use: none Marital Status: single Housing Status: lives alone Occupation Status: retired, other (is also a ) Allergies Coded Allergies: No Known Allergies (Unverified , NONE, 09/07/17) Home Medications Scheduled Budesonide/Formoterol Fumarate (Symbicort 160/4.5 Inhaler ), 2 PUFFS INH BID Diltiazem Hcl Ext Rel (Tiazac), 180 MG PO QAM Furosemide (Lasix), 40 MG PO BID Scheduled PRN Ipratropium-Albuterol (Combivent Respimat), 1 PUFFS INH QID PRN for SOB/Wheezing Nitroglycerin (Nitrostat), 0.4 MG SL UD PRN for Chest Pain Current Inpatient Medications Current Inpatient Medications Medications (Trade) Dose Ordered Sig/Andrés Route Start Time Stop Time Status Last Admin Dose Admin Ioversol (Optiray 320) 100 ml UD PRN IV 09/07/17 19:15 09/11/17 19:14 Heparin Sodium (Porcine) (Heparin Sq 5000 Unit/0.5ml) 5,000 unit Q8 SQ 09/07/17 22:00 10/07/17 21:59 09/07/17 22:37 5,000 UNIT Acetaminophen (Tylenol Tab) 650 mg Q4H PRN PO 09/07/17 19:15 10/07/17 19:14 Piperacillin Sod/ Tazobactam Sod 3.375 gm/Dextrose 115 ml @ 28.75 mls/ hr Q8@0000,0800,1600 IV 09/08/17 00:00 09/15/17 00:00 Vancomycin HCl 1500 mg/Sodium Chloride 530 ml @ 200 mls/hr Q12H IV 09/08/17 08:00 09/14/17 19:59 Methylprednisolone Sodium Succinate 60 mg/Syringe 0.96 ml @ 1.5 mls/min Q6H IV 09/07/17 22:00 10/07/17 21:59 09/07/17 22:37 1.5 MLS/MIN Budesonide/ Formoterol Fumarate (Symbicort 160/ 4.5 Inh) 2 puffs BID INH 09/07/17 21:00 10/07/17 20:59 Diltiazem HCl (TIAzac CAP) 180 mg QAM PO 09/08/17 09:00 10/08/17 08:59 Furosemide (Lasix Tab) 40 mg BID17 PO 09/07/17 20:00 10/07/17 19:59 Albuterol/ Ipratropium (Duoneb) 3 ml QIDR INH 09/07/17 20:00 10/07/17 19:59 Vancomycin HCl (Consult) 1 ea UD PRN N/A 09/07/17 20:30 10/07/17 20:29 Piperacillin Sod/ Tazobactam Sod (Consult) 1 ea UD PRN N/A 09/07/17 20:30 10/07/17 20:29 Influenza Virus Vaccine (Fluzone High-Dose Pf 0.5 ml) 0.5 ml ONCE ONCE IM. 09/08/17 08:00 09/08/17 08:01 Pneumococcal Polysaccharide Vaccine (Pneumovax-23 Inj) 25 mcg ONCE ONCE IM. 09/08/17 08:00 09/08/17 08:01 Lorazepam (Ativan Inj) 1 mg Q6H PRN IV 09/07/17 22:45 10/07/17 22:44 Morphine Sulfate (MoRPHine SULFATE INJ) 2 mg Q30M PRN IV 09/07/17 22:45 09/21/17 22:44 Pantoprazole Sodium 40 mg/ Syringe 10 ml @ 5 mls/min DAILY@1100 IV 09/08/17 11:00 10/08/17 10:59 Morphine Sulfate (MoRPHine SULFATE INJ) 2 mg ONE STAT IV 09/07/17 23:37 09/07/17 23:38 UNV Morphine Sulfate/ Dextrose 250 ml @ 0 mls/hr Q0M STAT IV 09/07/17 23:37 09/07/17 23:38 UNV Review of Systems Unable to obtain secondary to patient condition Physical Exam Date Time Temp Pulse Resp B/P (MAP) Pulse Ox O2 Delivery O2 Flow Rate FiO2 09/07/17 22:00 105/74 (84) 96 BiPAP 60.0 09/07/17 21:22 84 96 60 09/07/17 20:56 36.1 91 22 101/68 94 BiPAP 70 09/07/17 20:53 100 93 70 09/07/17 19:49 85 18 95/74 95 09/07/17 18:28 95 95 90 09/07/17 18:19 95 24 92 BiPAP/CPAP 100 09/07/17 17:16 101 14 104/74 100 BiPAP 100 09/07/17 16:26 101 20 94 BiPAP/CPAP 100 09/07/17 16:23 101 94 100 09/07/17 15:50 97 09/07/17 15:40 84 Room Air 09/07/17 15:40 84 Room Air 09/07/17 15:40 36.4 106 26 137/87 84 Room Air 09/07/17 15:40 98 Non-Rebreather General Appearance: moderate distress Head: normocephalic, atraumatic Eyes: other (pupils are sluggishly reactive) Neck: normal range of motion, no tenderness, trachea midline Respiratory: respiratory distress (poor air entry) Cardiovasular: regular rate/rhythm, normal S1S2 Abdomen: non tender Upper Extremities: no edema Neuro: decreased LOC (GCS 3) Laboratory Results Last 24 Hours Test 09/07/17 16:17 09/07/17 16:20 09/07/17 16:28 09/07/17 18:17 Venous Blood pH 7.26 Venous Blood Partial Pressure CO2 102 mmHg Venous Blood Partial Pressure O2 37 mmHg Venous Blood HCO3 45 mmol/L Venous Blood Oxygen Saturation 69.5 % Venous Blood Base Excess 12.7 mEq/L White Blood Count 14.12 K/uL Red Blood Count 5.42 M/uL Hemoglobin 15.8 g/dL Hematocrit 52.3 % Mean Corpuscular Volume 96.5 fL Mean Corpuscular Hemoglobin 29.2 pg Mean Corpuscular Hemoglobin Concent 30.2 g/dl Platelet Count 267 K/uL Mean Platelet Volume 10.6 fL Neutrophils (%) (Auto) 88.7 % Lymphocytes (%) (Auto) 4.8 % Monocytes (%) (Auto) 5.8 % Eosinophils (%) (Auto) 0.0 % Basophils (%) (Auto) 0.1 % Neutrophils # (Auto) 12.51 K/uL Lymphocytes # (Auto) 0.68 K/uL Monocytes # (Auto) 0.82 K/uL Eosinophils # (Auto) 0.00 K/uL Basophils # (Auto) 0.02 K/uL RDW Standard Deviation 54.7 fL RDW Coefficient of Variation 15.5 % Immature Granulocyte % (Auto) 0.6 % Immature Granulocyte # (Auto) 0.09 K/uL Prothrombin Time 11.0 SECONDS Prothromb Time International Ratio 1.0 Sodium Level 136 mmol/L Potassium Level 3.8 mmol/L Chloride Level 94 mmol/L Carbon Dioxide Level 39 mmol/L Anion Gap 3.0 mmol/L Blood Urea Nitrogen 19 mg/dl Creatinine 1.04 mg/dl Est Creatinine Clear Calc Drug Dose 79.1 ml/min Estimated GFR () 85.1 Estimated GFR (Non- 73.4 BUN/Creatinine Ratio 18.4 Random Glucose 141 mg/dl Calcium Level 8.7 mg/dl Magnesium Level 2.5 mg/dl Total Bilirubin 0.4 mg/dl Direct Bilirubin 0.2 mg/dl Aspartate Amino Transf (AST/SGOT) 36 U/L Alanine Aminotransferase (ALT/SGPT) 32 U/L Alkaline Phosphatase 121 U/L Troponin I 0.030 ng/ml Pro-B-Type Natriuretic Peptide 118 pg/ml Total Protein 7.6 gm/dl Albumin 3.0 gm/dl Lipase 64 U/L Lactic Acid Level 1.0 mmol/L Bedside Hemoglobin 17.3 g/dl Bedside Hematocrit 51 % Bedside Blood Gas pH (LAB) 7.22 Bedside Blood Gas pCO2 (LAB) > 115 mmHg Bedside Blood Gas pO2 (LAB) 107 mmHg Bedside Blood Gas HCO3 (LAB) 48 meq/L Bedside Blood Gas Total CO2 < 5 mEq/l Bedside Blood Gas Base Excess (LAB) 20.0 meq/L Bedside Blood Gas O2 Saturation 96.0 % Bedside Sodium 137 mEq/L Bedside Potassium 3.9 mEq/L Test 09/07/17 20:43 09/07/17 21:56 Arterial Blood pH 7.19 Arterial Blood Partial Pressure CO2 110 mmHg Arterial Blood Partial Pressure O2 95 mm/Hg Arterial Blood HCO3 41 mmol/L Arterial Blood Oxygen Saturation 95.6 % Arterial Blood Base Excess 8.0 mEq/L Arterial Blood Gas Delivery 15 L Harman Test POS Bedside Glucose 176 mg/dl Diagnostic Results (CHEST FOR PE) ANGIO WITH CT DOSE: 715.06 mGy.cm HISTORY: Chest pain dyspnea TECHNIQUE: Multiaxial CT images of the chest were performed following the intravenous administration of contrast to evaluate the pulmonary arteries. Maximal intensity projection images were also obtained. A dose lowering technique was utilized adhering to the principles of ALARA. COMPARISON STUDY: 04/19/2016 FINDINGS: Thoracic aorta shows moderate atherosclerotic change. It is negative for aneurysm. Pulmonary arterial vasculature enhances appropriately. There are no major filling defects. Heart is mildly enlarged. The right upper lobe mass again shows a spiculated margin and has increased in volume. Currently measures 3.3 x 3.7 cm and is pleural-based. Neoplasm is the diagnosis of exclusion. Remainder the right lung shows mild bibasilar interstitial change. There is a small consolidative infiltrate posterior aspect of the right as well as left posterior gastric angle. Bibasilar atelectatic changes present. There is a new developing nodule lateral aspect left lung base measuring 11 mm at maximum. Limited evaluation of the upper abdomen shows mild hyperplastic changes the adrenal glands. IMPRESSION: 1. Study is negative for pulmonary embolus. 2. Increase in size of a right upper lobe spiculated mass currently measuring 3.3 x 3.7 cm. 3. A neoplastic processes diagnosis of exclusion. 4. Additional 11 mm spiculated nodular density left base. 5. Mild bibasilar parenchymal infiltrative change with mild generalized emphysematous change bilaterally. The above report was generated using voice recognition software. It may contain grammatical, syntax or spelling errors. Electronically signed by: Luís Figueroa M.D. 09/07/2017 8:15 PM Dictated Date/Time: 09/07/2017 8:11 PM CHEST ONE VIEW PORTABLE CLINICAL HISTORY: CHEST PAIN dyspnea COMPARISON STUDY: [id number] FINDINGS: Increased diameter of a density right mid-upper lung region. This has a greatest maximum dimension currently of 3.6 cm increased from the prior study of 2.0 cm. Slight interstitial prominence of both lung bases noted although this is less prominent as compared to the prior study. IMPRESSION: Increasing size of a spiculated nodule right midlung region. 2. Neoplasm is the diagnosis of exclusion as was noted previously. 3. Slight basilar interstitial prominence. The above report was generated using voice recognition software. It may contain grammatical, syntax or spelling errors. I have reviewed the bedside monitor rhythm strip which had several beat run of non-sustained ventricular tachycardia EKG dated 09/07/2017 at 1553 revealed a sinus rhythm with a ventricular rate of 97 occasional PVCs prolonged QTC 505. Assessment & Plan (1) Acute hypercapnic respiratory failure (2) Mass of right lung (3) Mass of left lung (4) Prolonged Q-T interval on ECG (5) Tobacco abuse (6) Chronic obstructive lung disease (7) Hyperglycemia (8) Nonsustained ventricular tachycardia Reason Critically Ill: Acute hypercapnic respiratory failure in the setting of severe end-stage COPD with bilateral lung masses. PLAN: Neuro: * Acute encephalopathy secondary to CO2 narcosis Resp: Severe end-stage COPD Acute on chronic hypercapnic respiratory failure Chronic tobacco abuse * Continue bronchodilators * IV steroids * IV antibiotics: Started on Zosyn and vancomycin in the emergency department as well as AZITHROMYCIN, however the patient has prolonged QTC will convert to doxycycline CV: Nonsustained ventricular tachycardia Fluids/Renal: The patient was not started on fluids initially, he was allowed to have a diet ID: Antibiotics as described above we will discontinue azithromycin and transition to doxycycline for atypical coverage GI/Nutrition: Nothing by mouth Heme: DVT prophylaxis of heparin 5000 units subcutaneous every 8 hours Endocrine: Hyperglycemia likely will be exacerbated by steroid use I had an extensive discussion with the patient's family guarding his goals of care. The patient's family has been obviously under a lot of stress, they recently lost another brother in approximately April or May and they have attempted to discuss end-of-life issues with the patient he has continued to refuse to discuss those issues, and has not fallen up with medical care providers. The patient has bilateral lung masses, the right lung mass has increased in size. There is a new 11 mm lung mass at the base. I feel with a reasonable degree of medical certainty that if the patient was to be intubated he will likely require a prolonged course of mechanical ventilation and would require another tracheostomy to facilitate long-term ventilator weaning. Family is all in agreement that he is a very independent person and would not want to be dependent on machines nor have to live in a [place] [facility] facility or acute rehabilitation. Given his extensive smoking history and characteristics of these lung masses patient is likely dealing with a lung malignancy as well. The patient was resolute in not wanting to undergo cardiopulmonary resuscitation in event of cardiac arrest. I believe an reasonable degree of medical certainty that the patient has an end-stage terminal condition without chance of meaningful recovery. The patient had a cavity with a trial of intubation as it would only want to undergo it if it would aid his recovery. In further discussions with the family this is meant to represent independent living. I agree with the hospitalist that there is no clear benefit from intubation, we will truly not be recovering his synthetic lung function, and the patient has interval increase in pre-existing lung mass and a new lung mass in the other lung. Family is in agreement that such and outlook would be recovery as defined by their brother. Accordingly the family did not consent to intubation and mechanical ventilation. We will focus on the patient's comfort if he exhibits respiratory distress. I have personally spent 45 minutes of critical care time in the direct management of this patient. This is a life/limb threatening event. This includes time spent evaluating patient, direct bedside care, chart review, placing orders, interpretation of diagnostic studies, discussion with consultants, patient, and family members, as well as other required patient management activities. This time is exclusive of all separately billable procedures, and teaching time and separate from and in addition to any other critical care service time.
[2017-09-08] MEDS ORDERED: DOXYCYCLINE IV 100 MG in DEXTROSE 5% 100ML 100 ML IV SCH (01:00)
[2017-09-08 01:01] VITALS: BP 108/74; PULSE 75; O2SAT 95
[2017-09-08 01:58] LABS: CKMB/CK RATIO 3.7 (0-3.0)
[2017-09-08 02:01] VITALS: BP 120/80; PULSE 78; O2SAT 95
[2017-09-08 03:01] VITALS: BP 115/77; PULSE 78; O2SAT 94
[2017-09-08 04:01] VITALS: BP 122/72; PULSE 81; TEMP 35.9; O2SAT 93
[2017-09-08] MEDS: METHYLPREDNISOLONE IV 60 MG in SYRINGE 0 ML IV SCH (04:29)
[2017-09-08] MEDS ORDERED: VANCOMYCIN INJ 1,500 MG in SODIUM CHLORIDE 0.9% 500ML 500 ML IV SCH (08:00)
[2017-09-08] MEDS ORDERED: INFLUENZA VACCINE HIGH DOSE 65+ 0.5 ML SYR IM. ONE (08:00)
[2017-09-08] MEDS: ALBUT/IPRATROP 3MG/0.5MG NEB 3 ML VIAL INH SCH (08:00)
[2017-09-08] MEDS ORDERED: INFLUENZA ADMINISTRATION CHARGE ONE (08:00)
[2017-09-08] MEDS ORDERED: PNEUMOCOCCAL ADMINISTRATION CHARGE ONE (08:00)
[2017-09-08] MEDS ORDERED: PNEUMOCOCCAL POLYSACCHARIDES 25 MCG/0.5 ML VIAL/SYR IM. ONE (08:00)
[2017-09-08] MEDS ORDERED: DILTIAZEM HCL (TIAzac) 180 MG CAPCR PO SCH (09:00)
--- NOTE | 2017-09-08 10:08 | Critical Care Progress Note ---
Critical Care Progress Note Date of Service Physician Certified Financial Planner Supervision Note: I was present with LY Laguna during the history and exam. I discussed the case with the resident and agree with the findings and plan as documented in the note. In summary, the patient is a 67-year-old man with end-stage lung disease secondary to COPD, extensive smoking history, known lung mass. We had an extensive discussion with the family at the bedside about goals of care and end-of-life issues. Decision was made to proceed with comfort measures only. We will discontinue BiPAP and oxygen, transfer patient out of the ICU for further comfort measures. [id number]. Documented By: Trinidad Jones Sep 08, 2017. ICU Day ICU Day Number: [address] Jones Subjective Patient is a 67-year-old male with end-stage COPD who continues to smoke with a greater than 50 pack year history. He has a known lung mass. Most recently in April 2016 he had a COPD exacerbation required intubation and mechanical ventilation ultimately required tracheostomy for long-term ventilator weaning. Patient was found unresponsive by a lifelong family friend. He was stabilized and actually had a period of lucency yesterday and was looking forward to the Gnzo last night. He then became unresponsive again with a pCO2 of 110. He had trouble tolerating the BiPAP and was changed to a non-rebreather. Oxygen supplementation was then discontinued and patient was changed to comfort care and started on a morphine gtt. Patient is unresponsive and in bed and is surrounded by family. He does have some use of accessory muscles and morphine is being titrated. Family is in favor of discontinuing all medications other that comfort care meds. Abx will be held as well as chemical prophylaxis. Patient will be maintained on morphine infusion, Duonebs, and Lorazepam. Current SOFA Score SOFA Score Response (Comments) Value Platelets (x10) > 150 0 Bilirubin (mg/dL) < 1.2 0 [place] Coma Score < 6 4 Level of Hypotension No Hypotension 0 Creatinine (mg/dL) < 1.2 0 Total 4 Assessment & Plan (1) Acute hypercapnic respiratory failure Patient with persistent hypercapnic respiratory failure secondary to acute on chronic COPD Greater than 50 pack year smoking history - current every day smoker Patient and family elected comfort care measures yesterday Patient now unresponsive Discussed with family and they agree with morphine infusion and lorazepam as needed Patient to be managed in ICU for now as I do not think that he would survive transfer to another room. May consider moving upstairs in the early afternoon (2) Tobacco abuse Cancelled smoking cessation consult as patient has been changed to comfort care measures (3) Chronic obstructive lung disease Continue Duonebs for comfort Telemetry discontinued as patient is now comfort measures (4) Nonsustained ventricular tachycardia Comfort measures Discontinue telemetry (5) DVT prophylaxis DVT prophylaxis discontinued as patient status was changed to comfort care measures CCT: 0 minutes. Level III inpatient bill. Extensive visit with family to discuss comfort care measures. Also met with and discussed care with hospital correctional lieutenant and palliative care [employer] HELPER MACHINE as well as with Hospitalist team (Dr. Crump) Thank you for including us in the care of this patient. Please refer to Dr. Jones' addendum for additional recommendations. Consults & Procedures Consultants: [employer] service Procedures: IV infusion of fluids IV infusion of antibiotics IV infusion of morphine sulfate Data Medications: Current Inpatient Medications Medications (Trade) Dose Ordered Sig/Andrés Route Start Time Stop Time Status Last Admin Dose Admin Ioversol (Optiray 320) 100 ml UD PRN IV 09/07/17 19:15 09/11/17 19:14 Lorazepam (Ativan Inj) 1 mg Q6H PRN IV 09/07/17 22:45 10/07/17 22:44 Morphine Sulfate (MoRPHine SULFATE INJ) 2 mg Q30M PRN IV 09/07/17 22:45 09/21/17 22:44 Morphine Sulfate/ Dextrose 250 ml @ 2 mls/hr Q24H PRN IV 09/07/17 23:37 09/21/17 23:36 09/08/17 00:44 2 MLS/HR Vital Signs: Date Time Temp Pulse Resp B/P (MAP) Pulse Ox O2 Delivery O2 Flow Rate FiO2 09/08/17 04:17 Oxymask 5.0 09/08/17 04:01 35.9 81 15 122/72 (89) 93 Oxymask 5.0 09/08/17 03:01 78 20 115/77 (90) 94 09/08/17 02:01 78 19 120/80 (93) 95 09/08/17 01:01 75 20 108/74 (85) 95 09/08/17 00:01 78 20 112/80 (91) 96 Oxymask 5.0 09/07/17 23:59 Oxymask 09/07/17 22:00 105/74 (84) 96 BiPAP 60.0 09/07/17 21:22 84 96 60 09/07/17 20:56 36.1 91 22 101/68 94 BiPAP 70 09/07/17 20:53 100 93 70 09/07/17 19:49 85 18 95/74 95 09/07/17 18:28 95 95 90 09/07/17 18:19 95 24 92 BiPAP/CPAP 100 09/07/17 17:16 101 14 104/74 100 BiPAP 100 09/07/17 16:26 101 20 94 BiPAP/CPAP 100 09/07/17 16:23 101 94 100 09/07/17 15:50 97 09/07/17 15:40 84 Room Air 09/07/17 15:40 84 Room Air 09/07/17 15:40 36.4 106 26 137/87 84 Room Air 09/07/17 15:40 98 Non-Rebreather Laboratory Results: Last 24 Hours Test 09/07/17 16:17 09/07/17 16:20 09/07/17 16:28 09/07/17 18:17 Venous Blood pH 7.26 Venous Blood Partial Pressure CO2 102 mmHg Venous Blood Partial Pressure O2 37 mmHg Venous Blood HCO3 45 mmol/L Venous Blood Oxygen Saturation 69.5 % Venous Blood Base Excess 12.7 mEq/L White Blood Count 14.12 K/uL Red Blood Count 5.42 M/uL Hemoglobin 15.8 g/dL Hematocrit 52.3 % Mean Corpuscular Volume 96.5 fL Mean Corpuscular Hemoglobin 29.2 pg Mean Corpuscular Hemoglobin Concent 30.2 g/dl Platelet Count 267 K/uL Mean Platelet Volume 10.6 fL Neutrophils (%) (Auto) 88.7 % Lymphocytes (%) (Auto) 4.8 % Monocytes (%) (Auto) 5.8 % Eosinophils (%) (Auto) 0.0 % Basophils (%) (Auto) 0.1 % Neutrophils # (Auto) 12.51 K/uL Lymphocytes # (Auto) 0.68 K/uL Monocytes # (Auto) 0.82 K/uL Eosinophils # (Auto) 0.00 K/uL Basophils # (Auto) 0.02 K/uL RDW Standard Deviation 54.7 fL RDW Coefficient of Variation 15.5 % Immature Granulocyte % (Auto) 0.6 % Immature Granulocyte # (Auto) 0.09 K/uL Prothrombin Time 11.0 SECONDS Prothromb Time International Ratio 1.0 Sodium Level 136 mmol/L Potassium Level 3.8 mmol/L Chloride Level 94 mmol/L Carbon Dioxide Level 39 mmol/L Anion Gap 3.0 mmol/L Blood Urea Nitrogen 19 mg/dl Creatinine 1.04 mg/dl Est Creatinine Clear Calc Drug Dose 79.1 ml/min Estimated GFR () 85.1 Estimated GFR (Non- 73.4 BUN/Creatinine Ratio 18.4 Random Glucose 141 mg/dl Calcium Level 8.7 mg/dl Magnesium Level 2.5 mg/dl Total Bilirubin 0.4 mg/dl Direct Bilirubin 0.2 mg/dl Aspartate Amino Transf (AST/SGOT) 36 U/L Alanine Aminotransferase (ALT/SGPT) 32 U/L Alkaline Phosphatase 121 U/L Troponin I 0.030 ng/ml Pro-B-Type Natriuretic Peptide 118 pg/ml Total Protein 7.6 gm/dl Albumin 3.0 gm/dl Lipase 64 U/L Lactic Acid Level 1.0 mmol/L Bedside Hemoglobin 17.3 g/dl Bedside Hematocrit 51 % Bedside Blood Gas pH (LAB) 7.22 Bedside Blood Gas pCO2 (LAB) > 115 mmHg Bedside Blood Gas pO2 (LAB) 107 mmHg Bedside Blood Gas HCO3 (LAB) 48 meq/L Bedside Blood Gas Total CO2 < 5 mEq/l Bedside Blood Gas Base Excess (LAB) 20.0 meq/L Bedside Blood Gas O2 Saturation 96.0 % Bedside Sodium 137 mEq/L Bedside Potassium 3.9 mEq/L Test 09/07/17 20:43 09/07/17 21:56 09/08/17 01:06 Arterial Blood pH 7.19 Arterial Blood Partial Pressure CO2 110 mmHg Arterial Blood Partial Pressure O2 95 mm/Hg Arterial Blood HCO3 41 mmol/L Arterial Blood Oxygen Saturation 95.6 % Arterial Blood Base Excess 8.0 mEq/L Arterial Blood Gas Delivery 15 L Harman Test POS Bedside Glucose 176 mg/dl Total Creatine Kinase 140 U/L Creatine Kinase MB 5.2 ng/ml Creatine Kinase MB Ratio 3.7 Troponin I 0.109 ng/ml
--- NOTE | 2017-09-08 10:28 | Clinical Documentation Query ---
CLINICAL DOCUMENTATION QUERY Dr. LOPEZ, In your clinical opinion is this patient being managed for: ( ) suspected/possible gram negative or MRSA Pneumonia (x ) Not Agree ( ) Other explanation of clinical findings (Please Explain) ( ) Unable to determine (Please Define) ( ) Need to Discuss The medical record reflects the following clinical findings, treatment, and risk factors. Clinical Indicators: 67 yo male presenting with worsening dyspnea. Diagnosed with pneumonia. WBC 14.12 Treatment: tele with transfer to ICU, IV vancomycin, IV zosyn, IV doxycycline, O2 support/BIPAP, IV solumedrol Risk Factors:poor living conditions, chronic respiratory failure with home O2 dependence, severe COPD, suspected lung cancer, medical noncompliance Please clarify and document your clinical opinion in the progress notes and discharge summary. Terms such as "probable", "suspected", "likely", "questionable", "possible", or "still to be ruled out" are acceptable. IF IN AGREEMENT, YOU MUST DOCUMENT ABOVE DIAGNOSTIC STATEMENT IN DAILY PROGRESS NOTES AND DISCHARGE SUMMARY. This document is not part of the patient's record. Thank You, Corazon Lyles RN [phone]
[2017-09-08] MEDS ORDERED: PANTOprazole INJ 40 MG in SYRINGE 0 ML IV SCH (11:00)
--- NOTE | 2017-09-08 11:25 | Death Pronouncement Note ---
Pronouncement Note Date & Time of Sep 08, 2017. 11:12 Pronouncement At time of pronouncement the patients pupils were fixed and dilated, there was no spontaneous respiratory effort, no palpable pulse, no audible heart tones, and no response to pain or voice.
--- NOTE | 2017-09-08 17:33 | Death Summary ---
Summary of Admission Date Sep 07, 2017 at 19:12 Date & Time of Sep 08, 2017. 11:12 Cause of Acute on chronic hypercapnic and hypoxemic respiratory failure Severe COPD Secondary Diagnoses Chronic respiratory failure History of ventilator dependent respiratory failure requiring tracheostomy in April 2016 Current smoker HTN Chronic diastolic CHF History of paroxysmal atrial flutter requiring cardioversion Right-sided lung nodule Left Sided pulmonary nodule CKD stage III PTSD Prolonged QT Hospital Course This patient is a 67-year-old male with history of severe COPD with chronic respiratory failure on 2 L nasal cannula, history of ventilator dependent respiratory failure requiring tracheostomy in April 2016, current smoker, HTN, chronic diastolic CHF, history of paroxysmal atrial flutter, lung nodule, CKD stage III, who presented to the ER after being found unresponsive by a friend at home. His sister at the bedside reports she spoke to him on the phone yesterday and he sounded perfectly normal. When a friend came to check on him this afternoon, she found him unresponsive. He was in severe acute hypercapnic respiratory failure with an initial VBG a pH 7.26, CO2 102. He was placed on BiPAP and an ABG performed 2 hours later still showed pH 7.22, PaCO2 >115, and PaO2 of 107, although the patient at that time was much more alert and talkative than described upon his first arrival. His chest x-ray revealed evidence of emphysema and increase in size of a right sided lung nodule, but no pneumonia. He had a leukocytosis with a white blood cell count of 14, but no fever. The patient reports an increase in his thick patel-yellow sputum over the last week or so. Acute on chronic hypercapnic and hypoxemic respiratory failure/bilateral pneumonia/acute exacerbation COPD/pulmonary nodules/current smoker-patient with evidence of chronic CO2 retention with a bicarbonate of 39. ABG with PaCO2 greater than 115. Pulse ox was 84% on admission. CT angiogram of the chest negative for PE, but shows bilateral lower lobe infiltrate an enlarging 3.3 x 3.7 cm right upper lobe pleural-based nodule as well as a new 11 mm left lower lobe nodule. Nodules could be malignancy versus sarcoidosis given strong family history, but also a current smoker. Has a history of ventilator dependent respiratory failure requiring tracheotomy in April 2017 and prolonged ICU and LTAC stay -He was initially Admitted to telemetry unit for continuous cardiac monitoring, IV steroids, IV antibiotics, and continued on BiPAP. Soon after arrival to the telemetry unit, his repeat ABG was 7.19/110/95 and he became obtunded. He also had an 11 beat run of ventricular tachycardia but kept his pulse during that time. -He was transferred down to the intensive care unit for evaluation for elective intubation given his previously stated wishes. However after discussion with the human resources support specialist and the nocturnal hospitalist, it was clear that there was a good chance the patient may never wean off of the ventilator. The family knew that the patient would not want to live that lifestyle and they opted to not intubate him and rather make him comfort measures only. -He was placed on morphine through the IV for comfort and he quietly following morning Copy To Nicolas Son M.D.
[2017-09-09] MEDS ORDERED: VANCOMYCIN TROUGH SCH (07:30)
== END 2017-09-08 13:00 | disposition expired | DRG 189 ==
LOC: EDBD 15:39 → C.EDC 15:41 → C.2T 19:12 → ENRESERV 19:29 → C.MSICU 22:58
PROVIDERS: ADMIT Family Medicine; ATTEND Family Medicine
DX: J96.21 Acute and chronic respiratory failure with hypoxia (principal); G93.49 Other encephalopathy; I50.32 Chronic diastolic (congestive) heart failure; J44.1 Chronic obstructive pulmonary disease with (acute) exacerbation; I47.2 Ventricular tachycardia; I13.0 Hypertensive heart and chronic kidney disease with heart failure and stage 1 through stage 4 chronic kidney disease, or unspecified chronic kidney disease; J96.22 Acute and chronic respiratory failure with hypercapnia; R91.8 Other nonspecific abnormal finding of lung field; N18.3 Chronic kidney disease, stage 3 (moderate); I45.81 Long QT syndrome; R60.0 Localized edema; F17.210 Nicotine dependence, cigarettes, uncomplicated; E66.9 Obesity, unspecified; Z68.30 Body mass index [BMI] 30.0-30.9, adult; Z66 Do not resuscitate; Z51.5 Encounter for palliative care; Z99.81 Dependence on supplemental oxygen; Z91.14 Patient's other noncompliance with medication regimen; Z79.51 Long term (current) use of inhaled steroids; Z79.899 Other long term (current) drug therapy